=== PATIENT | male | born 1960 | race Caucasian/White ===

== ENCOUNTER → 2018-06-27 08:21 | Outpatient (CLI) | payer MEDICAID | END | disposition home or self-care (01) | LOC: D.US 08:21 | PROVIDERS: ATTEND Emergency Medicine | DX: F10.10 Alcohol abuse, uncomplicated (principal); R94.5 Abnormal results of liver function studies ==

== ENCOUNTER → 2018-07-01 07:19 | Outpatient (CLI) | payer MEDICAID | END | disposition home or self-care (01) | LOC: D.US 07:19 | PROVIDERS: ATTEND Emergency Medicine | DX: F10.10 Alcohol abuse, uncomplicated (principal); R94.5 Abnormal results of liver function studies ==